=== PATIENT | male | born 1975 | race Hispanic/Latino ===

== ENCOUNTER 2020-09-04 14:58 | Outpatient (CLI) | payer OTHER ==
--- NOTE | 2020-09-04 15:32 | RAD ---
XR Lumbar Spine 2 Or 3 View HISTORY: Low back pain, disability exam FINDINGS: Mild degenerative changes are present. No acute fracture, subluxation or bony destruction is noted. A spina bifida occulta is noted at S1 level.
--- NOTE | 2020-09-04 15:32 | RAD ---
XR Knee Rt 2 View HISTORY: Disability exam, right knee pain FINDINGS: No fracture or dislocation is identified.
== END 2020-09-04 14:59 | disposition home or self-care (01) ==
LOC: BICRAD 14:58
PROVIDERS: ATTEND Internal Medicine
DX: Z02.71 Encounter for disability determination (principal); M47.816 Spondylosis without myelopathy or radiculopathy, lumbar region; Q05.9 Spina bifida, unspecified
CPT/HCPCS: 72100